=== PATIENT | male | born 1965 | race American Indian/Alaskan Native ===

== ENCOUNTER 2018-07-20 11:55 | Emergency (ER) | payer MEDICARE, MEDICAID ==
[2018-07-20 11:55] VITALS: BMI 29.1
[2018-07-20 12:01] VITALS: TEMP 97.9
--- NOTE | 2018-07-20 12:37 | C.PDOC ---
History Of Present Illness 52 y/o male with history of Gastritis presents to ED with c/o right knee pain after he bent over from chair to pickler helper stem roller on floor and fell onto right knee. Patient denies loc, head injury, weakness to legs, numbness or any other complaints at this time. - HPI Time Seen by Provider: 07/20/18 12:12 Chief Complaint (Nursing): Trauma History Per: Patient History/Exam Limitations: no limitations Onset/Duration Of Symptoms: Hrs Past Medical History Reviewed: Historical Data, Nursing Documentation, Vital Signs Vital Signs: Last Vital Signs Temp 97.9 F 07/20/18 12:00 Pulse 97 H 07/20/18 12:00 Resp 20 07/20/18 12:00 BP 145/84 07/20/18 12:00 Pulse Ox 96 07/20/18 12:00 - Medical History PMH: Back Problems, Deep Vein Thrombosis (bilateral), Gastritis, HTN, Multiple Sclerosis, Chronic Pain Surgical History: Back Surgery - [facility] Procedures EXERCISE TREATMENT OF MUSCULOSK WHOLE USING ASSIST EQUIPMENT (02/20/17) EXERCISE TRMT MUSCULOSK LOW BACK/LE W ASSIST EQUIP (03/23/17) EXERCISE TRMT MUSCULOSK UP BACK/UE W ASSIST EQUIP (03/23/17) FLUOROSCOPY OF SUPERIOR VENA CAVA, GUIDANCE (02/20/17) FUSION OF 2-6 C JT, POST APPR P COL, OPEN APPROACH (02/13/17) GAIT TRAINING/AMBULAT TREATMENT USING ASSIST EQUIPMENT (03/23/17) HOME MANAGEMENT TREATMENT USING ASSIST EQUIPMENT (03/23/17) INSERTION OF INFUSION DEV INTO SUP VENA CAVA, PERC APPROACH (02/20/17) INSERTION OF INTRALUM DEV INTO INF VENA CAVA, PERC APPROACH (02/13/17) MANUAL THERAPY TECHNIQUES TREATMENT OF MUSCULOSK LOW BACK/LE (03/23/17) ROM & JT MOBILITY TRMT MUSCULOSK LOW BACK/LE W ASSIST EQUIP (03/23/17) ULTRASONOGRAPHY OF SUPERIOR VENA CAVA, GUIDANCE (02/20/17) Family History: States: No Known Family Hx - Social History Hx Alcohol Use: No Hx Substance Use: Yes Review Of Systems Except As Marked, All Systems Reviewed And Found Negative. Musculoskeletal: Positive for: Leg Pain Skin: Negative for: Bruising Neurological: Negative for: Weakness, Numbness, Headache Physical Exam - Physical Exam Additional Physical Exam Comments: Constitutional: No acute distress. Head: Normocephalic. Atraumatic. Eyes: PERRL. ENT: Moist mucous membranes. Neck: Supple. Cardiovascular: Regular rate. Radial pulse 2+ bilaterally. Chest: No tenderness. Respiratory: Clear to auscultation bilaterally. Back: No CVA tenderness. Musculoskeletal: Right patellar tenderness. No crepitus or deformity. No tibia or fibular tenderness. Full ROM on lower extremities Skin: No rash. Neurologic: Alert, no focal deficit. ED Course And Treatment O2 Sat by Pulse Oximetry: 96 (RA) Pulse Ox Interpretation: Normal Medical Decision Making Medical Decision Making: Plan: Xray of right knee Right knee xray: PROCEDURE: Right Knee Radiographs. HISTORY: fall onto knee COMPARISON: None. FINDINGS: BONES: Normal. No fracture. JOINTS: Normal. No osteoarthritis. JOINT EFFUSION: None. OTHER FINDINGS: None. IMPRESSION: Normal radiographs of the right knee. IRWIN wrap applied. Discharged home, f/u clinic/PMD, return to ED for worsening pain, fever, erythema, or any other problem. Disposition - Disposition Referrals: Emiliano Moreno MD [Staff Provider] - Disposition: HOME/ ROUTINE Disposition Time: 13:21 Condition: STABLE Instructions: Contusion (DC) Forms: Timeful (Persian) - Clinical Impression Clinical Impression: Contusion, Knee pain - Scribe Statement The provider has reviewed the documentation as recorded by the Scribsara Urbano All medical record entries made by the Scribe were at my direction and personally dictated by me. I have reviewed the chart and agree that the record accurately reflects my personal performance of the history, physical exam, medical decision making, and the department course for this patient. I have also personally directed, reviewed, and agree with the discharge instructions and disposition.
--- NOTE | 2018-07-20 13:17 | RAD ---
Date of service: 07/20/2018 PROCEDURE: Right Knee Radiographs. HISTORY: fall onto knee COMPARISON: None. FINDINGS: BONES: Normal. No fracture. JOINTS: Normal. No osteoarthritis. JOINT EFFUSION: None. OTHER FINDINGS: None. IMPRESSION: Normal radiographs of the right knee.
[2018-07-20 13:29] VITALS: BP 138/104; PULSE 83; RESP 17; O2SAT 98
== END 2018-07-20 15:32 | disposition home or self-care (01) ==
LOC: C.ER 11:55
DX: S80.01XA Contusion of right knee, initial encounter (principal); W07.XXXA Fall from chair, initial encounter; Y92.9 Unspecified place or not applicable; M25.561 Pain in right knee
CPT/HCPCS: 73562; 96372; 99285; J1885

== ENCOUNTER 2018-08-06 13:15 | Inpatient (IN) | payer MEDICARE, MEDICAID ==
[2018-08-06 13:18] VITALS: BMI 31.3
--- NOTE | 2018-08-06 14:04 | C.PDOC ---
History Of Present Illness 52 year old male, who is wheelchair bound secondary to MS, presents to the ED for evaluation after he reportedly sustained a fall today. Patient states he was watching TV when he tried reaching for the remote and fell. Patient states he hit his head and is complaining of back pain. Of note, patient has had multiple prior visits for similar complaints and his [facility] records show multiple narcotic prescriptions. Patient denies LOC, nausea, vomiting or any other complaints at this time. Time Seen by Provider: 08/06/18 13:49 Chief Complaint (Nursing): Back Pain History Per: Patient History/Exam Limitations: no limitations Onset/Duration Of Symptoms: Hrs Current Symptoms Are (Timing): Still Present Quality Of Discomfort: "Pain" Previous Symptoms: Back Pain Additional History Per: Patient Past Medical History Reviewed: Historical Data, Nursing Documentation, Vital Signs Vital Signs: Last Vital Signs Temp 99.2 F 08/06/18 13:41 Pulse 84 08/06/18 13:41 Resp 20 08/06/18 13:41 BP 144/90 08/06/18 13:41 Pulse Ox 98 08/06/18 13:41 - Medical History PMH: Back Problems, Deep Vein Thrombosis (bilateral), Gastritis, HTN, Multiple Sclerosis, Chronic Pain Denies: HIV, Chronic Kidney Disease Surgical History: Back Surgery - [facility] Procedures EXERCISE TREATMENT OF MUSCULOSK WHOLE USING ASSIST EQUIPMENT (02/20/17) EXERCISE TRMT MUSCULOSK LOW BACK/LE W ASSIST EQUIP (03/23/17) EXERCISE TRMT MUSCULOSK UP BACK/UE W ASSIST EQUIP (03/23/17) FLUOROSCOPY OF SUPERIOR VENA CAVA, GUIDANCE (02/20/17) FUSION OF 2-6 C JT, POST APPR P COL, OPEN APPROACH (02/13/17) GAIT TRAINING/AMBULAT TREATMENT USING ASSIST EQUIPMENT (03/23/17) HOME MANAGEMENT TREATMENT USING ASSIST EQUIPMENT (03/23/17) INSERTION OF INFUSION DEV INTO SUP VENA CAVA, PERC APPROACH (02/20/17) INSERTION OF INTRALUM DEV INTO INF VENA CAVA, PERC APPROACH (02/13/17) MANUAL THERAPY TECHNIQUES TREATMENT OF MUSCULOSK LOW BACK/LE (03/23/17) ROM & JT MOBILITY TRMT MUSCULOSK LOW BACK/LE W ASSIST EQUIP (03/23/17) ULTRASONOGRAPHY OF SUPERIOR VENA CAVA, GUIDANCE (02/20/17) Family History: States: Unknown Family Hx - Social History Hx Alcohol Use: Yes Hx Substance Use: Yes - Immunization History Hx Tetanus Toxoid Vaccination: No Hx Influenza Vaccination: No Hx Pneumococcal Vaccination: No Review Of Systems Gastrointestinal: Negative for: Nausea, Vomiting Musculoskeletal: Positive for: Back Pain Physical Exam - Physical Exam Appears: Non-toxic, No Acute Distress Skin: Normal Color, Warm, Dry Head: Atraumatic, Normacephalic, No Tenderness, No Laceration Eye(s): bilateral: Normal Inspection Oral Mucosa: Moist Chest: Symmetrical, No Deformity, No Tenderness Cardiovascular: Rhythm Regular, No Murmur Respiratory: Normal Breath Sounds, No Rales, No Rhonchi, No Wheezing Extremity: Normal ROM, Capillary Refill (less than 2 seconds ) Neurological/Psych: Oriented x3, Normal Speech, Normal Cognition Gait: Other (wheelchair bound) ED Course And Treatment - Laboratory Results Result Diagrams: 08/06/18 16:29 08/06/18 16:29 O2 Sat by Pulse Oximetry: 98 (on RA) Pulse Ox Interpretation: Normal Medical Decision Making Medical Decision Making: Progress: CT Head and LS Spine AP/LAT ordered and reviewed. Tylenol PO given. pt now requesting detox. labs neg. medicaly clear. accepted Disposition - Disposition Disposition: HOSPITALIZED Disposition Time: 18:00 Condition: STABLE - Clinical Impression Clinical Impression: Alcohol use disorder, Fall, Lumbar sprain, Head injury - Scribe Statement The provider has reviewed the documentation as recorded by the Scribe (Jannette Love) Provider Attestation: All medical record entries made by the Scribe were at my direction and personally dictated by me. I have reviewed the chart and agree that the record accurately reflects my personal performance of the history, physical exam, medical decision making, and the department course for this patient. I have also personally directed, reviewed, and agree with the discharge instructions and disposition. Decision To Admit - Pt Status Changed To: Hospital Disposition Of: Inpatient - Admit Certification Admit to Inpatient:: After my assessment, the patient will require hospitalizati on for at least two midnights. This is because of the severity of symptoms shown, intensity of services needed, and/or the medical risk in this patient being treated as an outpatient. - InPatient: Physician Admission Certification:: needs detox - . Bed Request Type: Detox Admitting Physician: Yanet Barak Patient Diagnosis: Alcohol use disorder, Fall, Lumbar sprain, Head injury
--- NOTE | 2018-08-06 14:46 | CT ---
Date of service: 08/06/2018 PROCEDURE: CT HEAD WITHOUT CONTRAST. HISTORY: fall COMPARISON: None available TECHNIQUE: Axial computed tomography images were obtained through the head/brain without intravenous contrast. Radiation dose: Total exam DLP = 1106.43 mGy-cm. This CT exam was performed using one or more of the following dose reduction techniques: Automated exposure control, adjustment of the mA and/or kV according to patient size, and/or use of iterative reconstruction technique. FINDINGS: Streak artifact obscures evaluation of the skull base. HEMORRHAGE: No intracranial hemorrhage. BRAIN: Atrophy disproportionately affecting the cerebellum. No mass effect or edema. The adorno-white matter differentiation appears intact. Please note that MRI with diffusion imaging is more sensitive in the detection of acute ischemic event. VENTRICLES: No hydrocephalus. CALVARIUM: Unremarkable. PARANASAL SINUSES: Unremarkable as visualized. No significant inflammatory changes. MASTOID AIR CELLS: Under aeration of the left mastoid air cells; correlate clinically for history of mastoiditis. The right mastoid air cells appear clear. OTHER FINDINGS: None. IMPRESSION: Atrophy disproportionately affecting the cerebellum. Under aeration of the left mastoid air cells; correlate clinically for history of mastoiditis. The right mastoid air cells appear clear.
--- NOTE | 2018-08-06 15:52 | RAD ---
Date of service: 08/06/2018 PROCEDURE: Radiographs of the Lumbar Spine. HISTORY: back pain COMPARISON: No prior. FINDINGS: BONES: No acute fractures. There is a minor diffuse scoliosis centered at the L1-L2 level. DISC SPACES: There is very minor multilevel degenerative spondylosis. Changes include varying degrees of mild posterior disc space narrowing including lower thoracic disc space levels. OTHER FINDINGS: In situ IVC filter. IMPRESSION: No acute fractures. Mild dextroscoliosis with very minor multilevel degenerative spondylosis
[2018-08-06 16:32] LABS: BASO # 0.1 K/uL (0.0-0.2); BASO % 1.2 % (0.0-2.0); EOS # 0.2 K/uL (0.0-0.7); EOS % 2.1 % (0.0-4.0); HEMOGLOBIN 12.1 g/dL (12.0-18.0); LYMPH # 1.7 K/uL (1.0-4.3); LYMPH % 19.8 % (20.0-40.0); MEAN CELL VOLUME 89.2 fL (80.0-94.0); MEAN CORPUSCULAR HEMOGLOBIN 29.2 pg (27.0-31.0); MEAN CORPUSCULAR HGB CONC 32.7 g/dL (33.0-37.0); MEAN PLATELET VOLUME 8.9 fL (7.2-11.7); MONO # 0.8 K/uL (0.0-0.8); MONO % 9.7 % (0.0-10.0); NEUT # 5.7 K/uL (1.8-7.0); NEUT % 67.2 % (50.0-75.0); RBC 4.14 Mil/uL (4.40-5.90); RED CELL DISTRIBUTION WIDTH 16.8 % (11.5-14.5); WHITE BLOOD COUNT 8.4 K/uL (4.8-10.8)
[2018-08-06 16:46] LABS: ALB/GLOB RATIO 1.5 (1.0-2.1); ALBUMIN 4.4 g/dL (3.5-5.0); ALT/SGPT 25 U/L (21-72); AST/SGOT 28 U/L (17-59); BLOOD UREA NITROGEN 14 mg/dL (9-20); CALCIUM 9.2 mg/dl (8.6-10.4); GFR NON-AFRICAN AMERICAN > 60
[2018-08-06] MEDS ORDERED: Potassium Chloride 20 mEq ER Tab PO STA (16:47)
[2018-08-06 17:10] LABS: SQUAMOUS EPITHIAL 1 /hpf (0-5); URINE BACTERIA RARE (<OCC); URINE BILIRUBIN 2+ (NEGATIVE); URINE BLOOD NEGATIVE (NEGATIVE); URINE CLARITY Clear (Clear); URINE GLUCOSE (UA) NORMAL (Normal); URINE LEUKOCYTE ESTERASE TRACE Leu/uL (Negative); URINE PROTEIN 1+ mg/dL (NEGATIVE)
[2018-08-06 17:15] LABS: URINE COLOR YELLOW (YELLOW)
[2018-08-06 17:23] LABS: BARBITURATES, UR NEGATIVE (NEGATIVE); OPIATES, UR NEGATIVE (NEGATIVE); PHENCYCLIDINE, UR NEGATIVE (NEGATIVE)
[2018-08-06 17:24] LABS: BENZODIAZEPINES, UR POSITIVE (NEGATIVE)
--- NOTE | 2018-08-06 18:28 | PCM.BM ---
<Cecelia Dunaway - Last Filed: 08/06/18 18:26> Treatment Plan Problems - Problems identified on initial assessmt potiential for autonomic instability related to alcohol withdrawal Date Initiated: 08/06/18 Time Initiated: 18:27 Assessment reference: NA Status: Active Treatment assets and liabiliti Patient Assests: negotiates basic needs, cognitively intact Patient Liabilities: substance abuse, medical problems - Milieu Protocol Maintain good personal hygiene: daily Encourage regular showers, daily Remind patient to perform daily oral care, daily Assist patient to perform ADL's Maintain personal safety: every shift Educate patient to report safety concerns to staff, every shift Monitor environment for contraband/sharps Medication safety: Monitor for expected outcome, potential side effects: every shift, Assess barriers to learning: every shift, Assess readiness for medication education: every shift <Gretta Nunez - Last Filed: 08/08/18 08:42> Family Contact Family involvement: Family/SO is involved Family contact name: Sri Family contacted how many times per week?: 3 - Goals for Treatment Patient goals for treatment: Complete detox and transition to a skilled nursing care facility. Discharge/Continuing Care - Education Needs Education Needs: Family Placement options, Patient Medication, Patient Diagnosis/Disease Process, Patient Coping Skills, Patient Anger Management skills, Patient Placement options, Patient Community resources - Discharge Discharge Criteria: No longer exhibiting s/s of withdrawal, Reduction of target symptoms Discharge to:: Longterm Facility - Treatment Team Participation Patient/Family/SO Statement: 08/08/18 08:41 "I wanna go somewhere where they can help me take care of myself..." Discussed with Family/SO: Yes (Began application for sub-acute rehab facility.) Was Patient/Family/SO present at Treatment Team Meeting: Yes (Discussed via conference call.)
[2018-08-07] MEDS: Pantoprazole 40 mg EC Tab PO SCH (11:00)
--- NOTE | 2018-08-07 11:32 | PCM.PSYCH ---
Initial Psychiatric Evaluation - Initial Psychiatric Evaluation Type of Admission: Voluntary Legal Status: Capacity Chief Complaint (in patient's own words): "I need to stop alcohol" History of Present Illness and Precipitating Events: Pt is a 52 year old AA male patient with a history of HTN, GERD, cerebral palsy, arthritis, alcoholic pancreatitis, and alcohol use disorder. He presented to the ED due to heavy alcohol consumption. He also take as needed Oxycodone 10 mg 3x a day per [place] [employer]. He states that he was tired of the way things were going in his life and it is time to make a change. He states that his drinking began at age 18 when his grandmother passed and that there have been periods of sobriety lasting a few days each. He states that he drinks several pints of dark liquor each day and that his last drink was yesterday when he "took it easy and only had 2-3 pints." He is not currently experiencing severe withdrawal symptoms, so his history may be distorted by him. The patient has never been to any rehab/detox and has never been admitted to a psychiatric hospital in the past. He denies thoughts of self harm/harm to others, depressed mood, anhedonia, hearing voices, or seeing things. He denies history of wit hdrawal seizures/DT's but admits to sometimes getting the shakes. He admits to very occasional marijuana use and denies use of other recreational drugs. He has a 7 pack year history of smoking and stopped when he was 27. Social hx: Patient is wheelchair-bound and lives by himself, but has a friend who is a nurse that helps him out with his ADLs and shopping. He is in communication with his sister and uncle and states that he is eating well. Medical hx: HTN, GERD, Cerebral palsy/MS, chronic pain arthritis, pancreatitis, bilateral DVT history Allergies: Shellfish, orange juice Surgical hx: Neck surgery Hospitalizations: Neck surgery Family hx: His mother from alcohol use (likely cirrhosis) Current Medications: Active Medications Generic Name Dose Route Start Last Admin Trade Name Freq PRN Reason Stop Dose Admin Amlodipine Besylate 10 mg 08/07/18 10:45 08/07/18 11:00 Norvasc PO 10 mg DAILY ADRIAN Administration Clonidine HCl 0.1 mg 08/06/18 20:11 08/06/18 20:20 Catapres PO 0.1 mg Q6 PRN Administration high bp Lorazepam 1 mg 08/06/18 18:33 08/06/18 19:46 Ativan PO 1 mg Q4 PRN Administration alcohol withdrawal Pantoprazole Sodium 40 mg 08/07/18 10:45 08/07/18 11:00 Protonix Ec Tab PO 40 mg DAILY ADRIAN Administration Trazodone HCl 50 mg 08/06/18 18:34 08/06/18 21:58 Desyrel PO 50 mg HS PRN Administration insomnia Past Psychiatric History - Past Psychiatric History Previous Treatment History: None Pertinent Medical Hx (Current Medical&Sleep Prob, Allergies): Allergies Allergy/AdvReac Type Severity Reaction Status Date / Time shellfish derived Allergy Intermediate ITCHING Verified 08/06/18 13:49 orange juice Allergy RASH Verified 08/06/18 13:49 Lansoprazole [Prevacid] 30 mg PO DAILY 05/13/17 Furosemide [Lasix] 40 mg PO DAILY #4 tablet 03/20/18 Fenofibrate [Tricor] 48 mg PO DAILY 05/28/18 M-Vit,Tx,Iron,Mins/Calc/Folic [Thera-M Caplet] 1 tab DAILY 05/28/18 Omeprazole 40 mg PO DAILY 05/28/18 amLODIPine [Norvasc] 10 mg PO DAILY #30 tab 05/29/18 Diazepam [Valium] 2 mg PO BID PRN #6 tab 07/17/18 Ibuprofen [Motrin] 600 mg PO TID 7 Days tab 07/17/18 Cyclobenzaprine [Cyclobenzaprine HCl] 10 mg PO DAILY PRN #10 tab 08/06/18 Review of Systems - Neurological Neurological: UNREMARKABLE - Psychiatric Psychiatric: Abnormal Sleep Pattern, Anxiety, Difficulty Concentrating. absent: Depression, Hallucinations, Homicidal Ideation, Suicidal Ideation Mental Status Examination - Personal Presentation Personal Presentation: Looks older than stated age - Affect Affect: Constricted - Motor Activity Motor Activity: Calm - Reliability in Providing Information Reliability in Providing Information: Fair - Speech Speech: Organized - Mood Mood: Anxious - Formal Thought Process Formal Thought Process: No Impairment - Cognitive Functions Orientation: Person, Place, Situation, Time Sensorium: Alert Attention/Concentration: Easily distracted Abstract Thinking: [place] Estimate of Intelligence: Average Judgement: Intact, as evidence by: Insight regarding need for hospitalization Memory: Recent intact, as evidence by: Ability to recall events of the day, Remote intact, as evidenced by: Abilit to recall sig. life events - Risk Risk: Withdrawal, Diminished functioning - Strength & Assets Inventory Strength & Assets Inventory: Cooperative - Limitations Limitations: Living alone DSM 5 DX - DSM 5 DSM 5 Diagnosis: Alcohol use d/o - severe Alcohol withdrawal anxiety d/o - unspecified - Recommended/Plan of Treatment Treatment Recommendations and Plan of Treatment: Librium taper if he starts to withdraw prn Librium per sxs until then As needed medications All risks, benefits and alternatives of the meds discussed, and the pt agreed and understood. Attend groups and activities Supportive therapy and psychoeducation [place] for abstinence CBT for relapse prevention Encourage MAT, ie antabuse. He cannot take naltrexone due to being on prn Oxy Consider JANA Teach healthy lifestyle methods, i.e. diet, exercise, meditation Attend AA and IOP if goes back home Motrin for pain Methdaone low dose if he withdraws (vs. Oxy low dose as it is confirmed) 34 min Projected ELOS: 2-4 days Prognosis: good w treatment - Smoking Cessation Smoking Cessation Initiated: Yes
[2018-08-08] MEDS: Pantoprazole 40 mg EC Tab PO SCH (10:27)
--- NOTE | 2018-08-08 11:10 | PCM.PYCHDC ---
Mental Status Examination - Mental Status Examination Orientation: Person Discharge Summary - Discharge Note Consultations:: List each consultation separately and include: 1. Reason for request. 2. Findings. 3. Follow-up Summary of Hospital Course include:: 1. Description of specific treatment plan utilized for patients during their course of treatmen. 2. Summarize the time- course for resolution of acute symptoms and/or regressed behaviors. 3. Describe issues identified and worked on during hospitalization. 4. Describe medication utilized. 5. Describe medical problems identified and treated. 6. Reassessment of suicide risk Summary of Hospital Course: Pt is a 52 year old AA male patient with a history of HTN, GERD, cerebral palsy, arthritis, alcoholic pancreatitis, and alcohol use disorder. He presented to the ED due to heavy alcohol consumption. He also take as needed Oxycodone 10 mg 3x a day per [place] [employer]. He states that he was tired of the way things were going in his life and it is time to make a change. He states that his drinking began at age 18 when his grandmother passed and that there have been periods of sobriety lasting a few days each. He states that he drinks several pints of dark liquor each day and that his last drink was yesterday when he "took it easy and only had 2-3 pints." He is not currently experiencing severe withdrawal symptoms, so his history may be distorted by him. The patient has never been to any rehab/detox and has never been admitted to a psychiatric hospital in the past. He denies thoughts of self harm/harm to others, depressed mood, anhedonia, hearing voices, or seeing things. He denies history of withdrawal seizures/DT's but admits to sometimes getting the shakes. He admits to very occasional marijuana use and denies use of other recreational drugs. He has a 7 pack year history of smoking and stopped when he was 27. Social hx: Patient is wheelchair-bound and lives by himself, but has a friend who is a nurse that helps him out with his ADLs and shopping. He is in communication with his sister and uncle and states that he is eating well. Medical hx: HTN, GERD, Cerebral palsy/MS, chronic pain arthritis, pancreatitis, bilateral DVT history Allergies: Shellfish, orange juice Surgical hx: Neck surgery Hospitalizations: Neck surgery Family hx: His mother from alcohol use (likely cirrhosis) - Final Diagnosis (DSM 5) Condition upon Discharge: STABLE Disposition: HOME/ ROUTINE Follow-up Treatment Plan: Librium taper if he starts to withdraw prn Librium per sxs until then As needed medications All risks, benefits and alternatives of the meds discussed, and the pt agreed and understood. Attend groups and activities Supportive therapy and psychoeducation [place] for abstinence CBT for relapse prevention Encourage MAT, ie antabuse. He cannot take naltrexone due to being on prn Oxy Consider JANA Teach healthy lifestyle methods, i.e. diet, exercise, meditation Attend AA and IOP if goes back home Motrin for pain Methdaone low dose if he withdraws (vs. Oxy low dose as it is confirmed) 34 min Prescriptions/Medication Reconciliation: amLODIPine [Norvasc] 10 mg PO DAILY #30 tab traZODone [Desyrel] 50 mg PO HS PRN #30 tab PRN Reason: insomnia
[2018-08-08 11:38] VITALS: BP 143/89; PULSE 77; RESP 20; TEMP 98.2; O2SAT 95
== END 2018-08-08 13:33 | disposition home or self-care (01) | DRG 895 ==
LOC: C.ER 13:15 → C.7D 17:55
PROVIDERS: ADMIT Psychiatry & Neurology Psychiatry; ATTEND Psychiatry & Neurology Psychiatry
PROC: HZ2ZZZZ Detoxification Services for Substance Abuse Treatment (ICD-10-PCS; principal; 2018-08-06)
PROC: HZ52ZZZ Individual Psychotherapy for Substance Abuse Treatment, Cognitive-Behavioral (ICD-10-PCS; 2018-08-06)
PROC: HZ59ZZZ Individual Psychotherapy for Substance Abuse Treatment, Supportive (ICD-10-PCS; 2018-08-06)
PROC: HZ56ZZZ Individual Psychotherapy for Substance Abuse Treatment, Psychoeducation (ICD-10-PCS; 2018-08-06)
PROC: HZ42ZZZ Group Counseling for Substance Abuse Treatment, Cognitive-Behavioral (ICD-10-PCS; 2018-08-06)
PROC: HZ46ZZZ Group Counseling for Substance Abuse Treatment, Psychoeducation (ICD-10-PCS; 2018-08-06)
PROC: GZHZZZZ Group Psychotherapy (ICD-10-PCS; 2018-08-06)
PROC: GZ58ZZZ Individual Psychotherapy, Cognitive-Behavioral (ICD-10-PCS; 2018-08-06)
PROC: GZ56ZZZ Individual Psychotherapy, Supportive (ICD-10-PCS; 2018-08-06)
DX: F10.230 Alcohol dependence with withdrawal, uncomplicated (principal); K86.0 Alcohol-induced chronic pancreatitis; Y90.0 Blood alcohol level of less than 20 mg/100 ml; S33.5XXA Sprain of ligaments of lumbar spine, initial encounter; F12.90 Cannabis use, unspecified, uncomplicated; F41.9 Anxiety disorder, unspecified; G35 Multiple sclerosis; G80.9 Cerebral palsy, unspecified; I10 Essential (primary) hypertension; K21.9 Gastro-esophageal reflux disease without esophagitis; S09.90XA Unspecified injury of head, initial encounter; Z99.3 Dependence on wheelchair; Z87.891 Personal history of nicotine dependence; W05.0XXA Fall from non-moving wheelchair, initial encounter; G47.00 Insomnia, unspecified